=== PATIENT | male | born 1965 ===

== ENCOUNTER 2017-09-03 13:30 | Inpatient (IN) | payer OTHER ==
[~2017-09-03] VITALS: Ht 180.3 cm; Wt 102.1 kg
[2017-09-04] MEDS ORDERED: DIOVAN HCT 3201 EAC1 PO (11:27)
[2017-09-12] MEDS ORDERED: NEURONTIN300 MG PO (08:11)
[2017-09-12] MEDS ORDERED: ULTRACET PO (08:11)
[2017-09-12] MEDS ORDERED: MIRALAX17 GM PO (08:11)
== END 2017-09-13 13:51 | disposition home or self-care (01) | DRG 351 ==
LOC: SURG 09-11 07:00 → SURH 09-11 10:30 → O/R 09-11 10:30 → SURG 09-11 13:30 → RECOVERY 09-11 13:30 → SURH 09-11 21:33
PROVIDERS: Surgery
PROC: 0YU64JZ Supplement Left Inguinal Region with Synthetic Substitute, Percutaneous Endoscopic Approach (ICD-10-PCS; 2017-09-11)
PROC: 0JX80ZZ Transfer Abdomen Subcutaneous Tissue and Fascia, Open Approach (ICD-10-PCS; 2017-09-11)
PROC: 0WUF4JZ Supplement Abdominal Wall with Synthetic Substitute, Percutaneous Endoscopic Approach (ICD-10-PCS; principal; 2017-09-11 07:00)
DX: K43.0 Incisional hernia with obstruction, without gangrene (principal); K56.0 Paralytic ileus; K91.89 Other postprocedural complications and disorders of digestive system; K40.90 Unilateral inguinal hernia, without obstruction or gangrene, not specified as recurrent